=== PATIENT | male | born 1935 | race Caucasian/White ===

== ENCOUNTER 2023-10-03 10:10 | Outpatient (CLI) | payer OTHER, SELFPAY ==
--- NOTE | 2023-10-03 10:16 | US_ITS ---
WS: [id number] RENAL ULTRASOUND HISTORY: STAGE 3A CHRONIC KIDNEY DZ COMPARISON: 06/17/2018 TECHNIQUE: 2-D and color Doppler imaging of the kidney submitted. Right kidney: 9.3 cm x 4.4 cm x 5.3 cm. Cortex: 0.9 cm Low normal size kidney. Marked increased echogenicity with thinning of the cortex. Simple cyst superi or pole measures 1.7 x 1.6 x 1.5 cm. There are a few additional scattered cysts. Left kidney: 11.7 cm x 4.6 cm x 5.0 cm. Cortex: 1.1 cm Normal size kidney. No hydronephrosis. There is increased echogenicity but not as obvious as involvin g the RIGHT kidney. Aorta: Normal. Urinary Bladder: Normal distention. Prostate enlargement measuring 3.7 x 3.9 x 3.6 cm. IMPRESSION: 1. Progressive atrophy and increased echogenicity throughout the RIGHT kidney from chronic medical re nal disease. Changes have progressed since 06/17/2018. 2. Mild increased echogenicity of the LEFT kidney but no atrophy or cortical thinning.
== END 2023-10-03 10:11 | disposition home or self-care (01) ==
LOC: RAD 10:10
PROVIDERS: Family Provider Internal Medicine; Visit Provider Internal Medicine
DX: N18.31 Chronic kidney disease, stage 3a (principal); N26.1 Atrophy of kidney (terminal)
CPT/HCPCS: 76770

== ENCOUNTER → 2024-05-11 08:06 | Outpatient (BNVA) | payer OTHER, SELFPAY | PROVIDERS: Family Provider Internal Medicine; Referring Provider Family Medicine; Visit Provider Nurse Practitioner Family | DX: L57.0 Actinic keratosis (principal); D48.5 Neoplasm of uncertain behavior of skin; L82.1 Other seborrheic keratosis; L81.4 Other melanin hyperpigmentation; D22.4 Melanocytic nevi of scalp and neck; L57.8 Other skin changes due to chronic exposure to nonionizing radiation | CPT/HCPCS: 11102; 17004; 99203 ==

== ENCOUNTER → 2024-06-09 08:45 | Outpatient (BNVA) | payer OTHER, SELFPAY | PROVIDERS: Family Provider Internal Medicine; Visit Provider Dermatology | DX: C44.319 Basal cell carcinoma of skin of other parts of face (principal) | CPT/HCPCS: 14040; 17311 ==